=== PATIENT | male | born 1975 | race Caucasian/White ===

== ENCOUNTER 2019-07-20 16:59 | Inpatient (IN) | payer MEDICAID ==
[~2019-07-20] VITALS: Ht 167.6 cm; Wt 103.0 kg
[2019-07-20 17:07] VITALS: Ht 167.6 cm; Wt 103.0 kg
[2019-07-20 17:29] LABS: PLATELET COUNT 166 x10^3mcL (130-400)
[2019-07-20 17:38] LABS: CALCIUM 8.4 mg/dL (8.5-10.1); CHLORIDE SERUM 103 mmol/L (98-107); CREATININE SERUM 2.3 mg/dL (0.7-1.3); GFR1 33 mL/min; GLUCOSE SERUM 136 mg/dL (74-106); POTASSIUM SERUM 3.3 mmol/L (3.5-5.1); SODIUM SERUM 139 mmol/L (136-145)
[2019-07-20 17:50] LABS: ALBUMIN 2.8 g/dL (3.4-5.0); ALKALINE PHOSPHATASE 122 U/L (46-116); ALT/SGPT 68 U/L (16-63); AST/SGOT 50 U/L (15-37); BILIRUBIN TOTAL 1.59 mg/dL (0.20-1.00); LIPASE 89 IU/L (73-393); T4(THYROXINE) 6.4 ug/dL (4.7-13.3); TOTAL PROTEIN, SERUM 7.2 g/dL (6.4-8.2)
[2019-07-20 17:57] LABS: MONOCYTE 1 % (0-7); SEGMENTED NEUTROPHILS 98 % (37-75); rbc morphology (normal/abnorm) NORMAL (NORMAL)
[2019-07-20 17:58] LABS: PLATELET MORPHOLOGY NORMAL
[2019-07-20 18:00] LABS: UA SPECIFIC GRAVITY >=1.030 (1.005-1.035); microscopic required? YES; urine erythrocyte TRACE (NEGATIVE)
[2019-07-20 18:32] LABS: AMPHETAMINE QUAL UR POSITIVE (See below)
[2019-07-21 02:07] LABS: CALCIUM 6.3 mg/dL (8.5-10.1); CARBON DIOXIDE 23.8 mmol/L (21-32); CREATININE SERUM 1.6 mg/dL (0.7-1.3)
[2019-07-21 02:13] LABS: PLATELET COUNT 142 x10^3mcL (130-400); RED CELL DISTRIBUTION WIDTH 13.4 % (11.5-14.5)
[2019-07-21 02:41] LABS: BAND NEUTROPHIL 9 % (0-10); BASOPHIL 0 % (0-2); MONOCYTE 4 % (0-7); SEGMENTED NEUTROPHILS 82 % (37-75)
[2019-07-21 02:43] LABS: rbc morphology (normal/abnorm) NORMAL (NORMAL)
[2019-07-21 05:17] LABS: CALCIUM 6.9 mg/dL (8.5-10.1); CARBON DIOXIDE 23.4 mmol/L (21-32); CREATININE SERUM 1.5 mg/dL (0.7-1.3); MAGNESIUM 1.3 mg/dL (1.8-2.4); PHOSPHOROUS 3.1 mg/dL (2.5-4.9)
[2019-07-21 05:19] LABS: POTASSIUM SERUM 5.7 mmol/L (3.5-5.1)
[2019-07-21 05:30] LABS: PLATELET COUNT 143 x10^3mcL (130-400); RED CELL DISTRIBUTION WIDTH 13.6 % (11.5-14.5)
[2019-07-21 06:09] LABS: BAND NEUTROPHIL 18 % (0-10); BASOPHIL 0 % (0-2); METAMYELOCTE 2 % (0-2); MONOCYTE 7 % (0-7); SEGMENTED NEUTROPHILS 71 % (37-75)
[2019-07-21 06:12] LABS: PLATELET MORPHOLOGY PLT CLUMPS SEEN; rbc morphology (normal/abnorm) NORMAL (NORMAL)
[2019-07-21 09:54] LABS: PLATELET COUNT 143 x10^3mcL (130-400); RED CELL DISTRIBUTION WIDTH 13.2 % (11.5-14.5)
[2019-07-21 10:09] LABS: CALCIUM 7.3 mg/dL (8.5-10.1); CARBON DIOXIDE 21.8 mmol/L (21-32); CHLORIDE SERUM 109 mmol/L (98-107); CREATININE SERUM 1.3 mg/dL (0.7-1.3); GFR1 > 60 mL/min; GLUCOSE SERUM 94 mg/dL (74-106); MAGNESIUM 1.4 mg/dL (1.8-2.4); PHOSPHOROUS 2.6 mg/dL (2.5-4.9); POTASSIUM SERUM 4.5 mmol/L (3.5-5.1); SODIUM SERUM 140 mmol/L (136-145)
[2019-07-21 10:51] LABS: BAND NEUTROPHIL 21 % (0-10); BASOPHIL 0 % (0-2); METAMYELOCTE 4 % (0-2); MONOCYTE 7 % (0-7); SEGMENTED NEUTROPHILS 64 % (37-75)
[2019-07-21 10:52] LABS: PLATELET MORPHOLOGY PLATELETS NORMAL
[2019-07-21 12:17] VITALS: BP 106/71
[2019-07-21 16:54] VITALS: BP 109/66
[2019-07-21 20:23] VITALS: BP 116/80
[2019-07-21 22:08] VITALS: BP 116/80
[2019-07-22 05:11] VITALS: BP 118/87
[2019-07-22 06:34] LABS: CARBON DIOXIDE 23.6 mmol/L (21-32); CHLORIDE SERUM 108 mmol/L (98-107); CREATININE SERUM 1.1 mg/dL (0.7-1.3); GFR1 > 60 mL/min; GLUCOSE SERUM 83 mg/dL (74-106); MAGNESIUM 1.9 mg/dL (1.8-2.4); PHOSPHOROUS 1.9 mg/dL (2.5-4.9); POTASSIUM SERUM 5.2 mmol/L (3.5-5.1); SODIUM SERUM 139 mmol/L (136-145)
[2019-07-22 07:09] LABS: PLATELET COUNT 134 x10^3mcL (130-400); RED CELL DISTRIBUTION WIDTH 13.6 % (11.5-14.5)
[2019-07-22 08:12] VITALS: BP 128/92
[2019-07-22 09:06] LABS: BAND NEUTROPHIL 9 % (0-10); MONOCYTE 7 % (0-7); SEGMENTED NEUTROPHILS 82 % (37-75)
[2019-07-22 09:07] LABS: PLATELET MORPHOLOGY PLATELETS DECREASED; rbc morphology (normal/abnorm) ABNORMAL (NORMAL)
[2019-07-22 11:54] VITALS: BP 121/86
[2019-07-22 16:00] VITALS: BP 124/88
[2019-07-22 20:15] LABS: PLATELET COUNT 145 x10^3mcL (130-400); RED CELL DISTRIBUTION WIDTH 13.5 % (11.5-14.5)
[2019-07-22 20:35] LABS: BAND NEUTROPHIL 4 % (0-10); BASOPHIL 0 % (0-2); MONOCYTE 2 % (0-7); SEGMENTED NEUTROPHILS 81 % (37-75); rbc morphology (normal/abnorm) NORMAL (NORMAL)
[2019-07-22 20:38] LABS: PLATELET MORPHOLOGY PLATELETS NORMAL
[2019-07-22 20:57] VITALS: BP 124/88
[2019-07-23 06:18] VITALS: BP 129/96
[2019-07-23 06:35] LABS: PLATELET COUNT 150 x10^3mcL (130-400); RED CELL DISTRIBUTION WIDTH 13.5 % (11.5-14.5)
[2019-07-23 07:06] LABS: CALCIUM 7.5 mg/dL (8.5-10.1); CARBON DIOXIDE 26.5 mmol/L (21-32); CHLORIDE SERUM 108 mmol/L (98-107); GFR1 > 60 mL/min; GLUCOSE SERUM 97 mg/dL (74-106); MAGNESIUM 1.5 mg/dL (1.8-2.4); PHOSPHOROUS 2.8 mg/dL (2.5-4.9); POTASSIUM SERUM 3.6 mmol/L (3.5-5.1); SODIUM SERUM 140 mmol/L (136-145)
[2019-07-23 09:06] VITALS: BP 136/92
[2019-07-23 09:46] LABS: BAND NEUTROPHIL 2 % (0-10); BASOPHIL 0 % (0-2); MONOCYTE 4 % (0-7); PLATELET MORPHOLOGY PLATELETS INCREASED; SEGMENTED NEUTROPHILS 91 % (37-75)
[2019-07-23 09:47] LABS: rbc morphology (normal/abnorm) ABNORMAL (NORMAL)
[2019-07-23 12:49] VITALS: BP 121/72
[2019-07-23 17:33] VITALS: BP 130/94
[2019-07-23 19:23] VITALS: BP 137/89
[2019-07-24 04:23] VITALS: BP 130/86
[2019-07-24 06:09] LABS: PLATELET COUNT 175 x10^3mcL (130-400); RED CELL DISTRIBUTION WIDTH 13.7 % (11.5-14.5)
[2019-07-24 06:29] LABS: CALCIUM 7.9 mg/dL (8.5-10.1); CARBON DIOXIDE 24.2 mmol/L (21-32); CHLORIDE SERUM 107 mmol/L (98-107); CREATININE SERUM 0.9 mg/dL (0.7-1.3); GFR1 > 60 mL/min; GLUCOSE SERUM 105 mg/dL (74-106); MAGNESIUM 1.7 mg/dL (1.8-2.4); PHOSPHOROUS 3.2 mg/dL (2.5-4.9); POTASSIUM SERUM 3.3 mmol/L (3.5-5.1); SODIUM SERUM 140 mmol/L (136-145)
[2019-07-24 08:10] VITALS: BP 122/81
[2019-07-24 09:49] LABS: BAND NEUTROPHIL 0 % (0-10); MONOCYTE 9 % (0-7); SEGMENTED NEUTROPHILS 68 % (37-75)
[2019-07-24 11:42] VITALS: BP 116/82
[2019-07-24 13:04] LABS: PLATELET MORPHOLOGY NORMAL; rbc morphology (normal/abnorm) NORMAL (NORMAL)
[2019-07-24] MEDS ORDERED: LEVAQUIN750 MG PO (13:59)
[2019-07-24] MEDS ORDERED: ZOF4 PO (14:00)
[2019-07-24] MEDS ORDERED: PROTONIX20 MG PO (14:02)
== END 2019-07-24 14:46 | disposition home or self-care (01) | DRG 720 ==
LOC: ED 16:59 → DU 19:22 → EDBEDREQSVC 07-21 10:46 → EDBEDREQ 07-21 10:46 → DU 07-21 10:52
PROVIDERS: Emergency Medicine; General Practice; ADMIT Internal Medicine
DX: A41.9 Sepsis, unspecified organism (principal); N17.0 Acute kidney failure with tubular necrosis; J69.0 Pneumonitis due to inhalation of food and vomit; E44.0 Moderate protein-calorie malnutrition; F14.20 Cocaine dependence, uncomplicated; E87.8 Other disorders of electrolyte and fluid balance, not elsewhere classified; E83.39 Other disorders of phosphorus metabolism; K52.9 Noninfective gastroenteritis and colitis, unspecified; E83.42 Hypomagnesemia; N18.4 Chronic kidney disease, stage 4 (severe); J44.1 Chronic obstructive pulmonary disease with (acute) exacerbation; D64.9 Anemia, unspecified; F15.20 Other stimulant dependence, uncomplicated; E87.6 Hypokalemia; R74.0 Nonspecific elevation of levels of transaminase and lactic acid dehydrogenase [LDH]; E66.9 Obesity, unspecified; Z68.30 Body mass index [BMI] 30.0-30.9, adult
CPT/HCPCS: 87046; 87046-59; 90658; G0378; J0295; J0744; J1885; J1956; J2405; J3475; J3480; J3490; J7030; J7620; Q0092